=== PATIENT | female | born 1945 | race Caucasian/White ===

== ENCOUNTER 2019-03-11 16:00 | Inpatient (IN) ==
--- NOTE | 2019-03-11 19:33 | ERNOTE ---
Medical Problem HPI - General Chief Complaint: General Assessment Time Seen by Provider: 03/11/19 19:22 Source: patient Exam Limitations: no limitations - Immun/Allergies/Home Medications Immunizations: IMMUNIZATION HX Immunizations Up to Date Yes History of Influenza Vaccine No Hx Pneumococcal Vaccination Yes Allergies/Adverse Reactions: Allergies No Known Allergies Allergy (Verified 02/28/19 10:06) Home Medications: HOME MEDICATIONS Calcium Carb/Vitamin D3/Vit K1 [Calcium + D Soft Chewable Tab] 1 ea PO DAILY 05/03/13 [Last Taken 05/01/14] Oxybutynin Chloride [Ditropan Xl] 5 mg PO DAILY 10/19/17 [Last Taken Unknown] ibuprofen 200 mg capsule 600 mg PO Q8H PRN cap 12/19/17 [Last Taken Unknown] omega 4-gss-caf-fish oil 1,000 mg (120 mg-180 mg) capsule 1 cap PO DAILY cap 03/01/18 [Last Taken Unknown] estradiol 0.01% (0.1 mg/gram) vaginal cream 1 g VG 2XW #42.5 g 10/01/18 [Last Taken Unknown] multivitamin capsule 1 cap PO .QOD cap 10/02/18 [Last Taken Unknown] naproxen sodium 220 mg tablet 220 mg PO DAILY PRN tab 11/01/18 [Last Taken Unknown] losartan 100 mg tablet 100 mg PO DAILY #90 tab 11/13/18 [Last Taken Unknown] atorvastatin 10 mg tablet 10 mg PO DAILY #90 tab 12/06/18 [Last Taken Unknown] metoprolol succinate ER 100 mg tablet,extended release 24 hr 100 mg PO DAILY #90 tab 02/08/19 [Last Taken Unknown] amlodipine 5 mg tablet 5 mg PO DAILY #30 tab 03/06/19 [Last Taken Unknown] - History of Present History Narrative: Pt states she has had visual problems that she cannot fully describe since being given a blood pressure medication a few weeks ago. Her PCP changed the medication last monday but the symptoms did not resolve and have worsened today despite improved blood pressure Timing: getting worse Severity: moderate Review of Systems - Review of Systems Constitutional: Absent: recent illness, fever, chills EYE: Present: see HPI ENT: Absent: ear pain, ear discharge, sore throat Respiratory: Absent: shortness of breath Cardiology: Absent: chest pain Gastrointestinal/Abdominal: Absent: nausea, vomiting Musculoskeletal: Absent: muscle pain, muscle stiffness Neurological: Absent: dizziness/light-headedness, numbness, tingling Endocrine: Absent: excessive sweating Medical History (Updated 12/24/18 @ 16:49 by Kevyn Velásquez DO) ARNOL (stress urinary incontinence, female) (Chronic) improved with pessary OAB (overactive bladder) (Chronic) improved with oxybutynin Anogenital lichen sclerosus (Suspected) Left knee pain (Acute) Onset Date: ~09/20/18 Atypical glandular cells of undetermined significance (MARYSE) on cervical Pap smear Onset Date: 07/20/16 Difficulty hearing Onset Date: ~2000 left ear GERD (gastroesophageal reflux disease) Onset Date: Unknown Hyperlipidemia Onset Date: 09/08/15 Hypertension Onset Date: 05/07/14 benign essential Knee pain Onset Date: ~2017 right Seasonal allergies Onset Date: Unknown Uterovaginal prolapse Onset Date: 07/20/16 Cervical herniated disc Onset Date: 11/21/13 C6-C7, with left arm radiculopathy Elbow pain Onset Date: 09/12/14 left Presence of pessary Onset Date: ~08/16/16 Radial head fracture Onset Date: Unknown Shoulder pain Onset Date: 07/05/13 Sinusitis, acute Onset Date: 05/28/12 UTI (urinary tract infection) Onset Date: 12/11/12 Vaginal discharge Onset Date: 07/20/16 Surgical History: Surgical History (Updated 09/17/18 @ 13:43 by Alecia Broussard RN) H/O tubal ligation Onset Date: ~1982 History of colonoscopy Onset Date: 05/10/13 09/25/07 Kannemichaelerg-polyp (no pathology). 05/10/13 Tinguely-diverticulosis. Recheck 5 yrs. History of ear surgery Onset Date: ~2001 Henrich-left History of esophagogastroduodenoscopy (EGD) Onset Date: 06/05/08 Jd- mild gastritis History of neck surgery Onset Date: ~11/2013 Marcelo Cordova-cervical lamenectomy Family History: Family History (Updated 09/19/18 @ 14:37 by Alecia Broussard RN) Brother Diabetes H/O heart bypass surgery Brother , age 51-DE Myocardial infarction Daughter Alive and well Father , age 84-leukemia Leukemia Grandmother Diabetes maternal Cancer maternal-unsure of type Grandmother Cancer paternal-colon (unknown age of dx) Mother , age 82-heart disease Diabetes Heart disease Hypertension Sister Cancer 1 [id number] age 69 Diabetes 1 sister Uncle Heart disease Brother Diabetes Hypertension Sister , age 69-lymphoma Cancer lymphoma-dx age 50's Social History: (Last Reviewed 03/11/19 @ 19:31 by Neal Becerra DO) Social History: Marital status: household members: spouse number of children: 2 current occupational status: retired current occupation: volunteer Service: No Tobacco: Smoking Status: Never smoker Alcohol: alcohol intake: current alcohol intake frequency: a few times a month Substance Use: substance use type: does not use Dietary Habits: caffeine: Yes Type: coffee Personal Safety: victim of physical abuse: No victim of emotional abuse: No Physical Exam - Physical Exam General Appearance: Present: wd/wn, alert, no apparent distress Head Exam: Present: normal inspection, no evidence of injury Ears, Nose, Throat: Present: normal ENT inspection Neck: Present: normal inspection, nontender, supple, other - No carotid bruit Respiratory: Present: no respiratory distress, normal breath sounds, lungs clear Cardiovascular/Chest: Present: regular rate, rhythm, no murmur Peripheral Pulses: N=norm/S=strong/W=weak/B=bound/A=absent: Carotid (R): Normal, Carotid (L): Normal Back Exam: Present: normal inspection, normal range of motion, no vertebral tenderness Extremity Exam: Present: normal inspection, no edema Neurological Exam: Present: alert, oriented, normal mood/affect, no motor/sensory deficits, 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 Results and Orders: Laboratory Tests 03/11/19 03/11/19 03/11/19 19:35 19:35 20:26 WBC 12.0 H Hgb 15.3 Hct 42.3 Plt Count 294 Sodium 124 L Potassium 3.1 L D Chloride 84 L BUN 13 Creatinine 0.77 Random Glucose 111 H Calcium 9.4 Total Bilirubin 0.4 AST 34 ALT 40 Alkaline Phosphatase 90 Total Protein 7.7 Albumin 4.0 Urine Color Yellow Urine Appearance Clear Urine pH 6.0 Ur Specific [place] <=1.005 Urine Protein Negative Urine Glucose (UA) Negative Urine Ketones 5 Urine Blood 50 H Urine Nitrate Negative Urine Bilirubin Negative Urine Urobilinogen Normal Ur Leukocyte Esterase 100 H Urine RBC 5-10 H Urine WBC 5-10 H Ur Epithelial Cells 5-10 H Urine Bacteria 1+ H Urine Culture Comments Culture to follow - Vital Signs Patient's Vital Signs:: I have reviewed the patient's vital signs. Vital Signs: Vital Signs 03/11/19 16:14 03/11/19 16:19 Temperature 36.7 C Pulse Rate 61 62 Respiratory Rate 16 Blood Pressure 177/69 H 160/74 H O2 Sat by Pulse Oximetry 100 100 - EKG EKG #1 EKG: NSR - slightly bradycardic at 58 bpm EKG read: Interp. by me - CT/Ultrasound CT/Ultrasound Narrative: IMPRESSION: 1. No acute intracranial hemorrhage or mass effect. 2. Additional comments as above. Electronically signed by Nacho Bianchi M.D.. - Progress/Reassessment Chief Complaint: General Assessment Progress:: Improved Progress Note-Subjective: 03/11/19 23:[address] Mcgee he agrees with inpatient admission due to hyponatremia and pyelonephritis. Departure Clinical Impression: Hyponatremia, Pyelonephritis - Departure Disposition: Still a patient Condition: Serious Referrals: Aide Gamino MD [Primary Care Provider] -
[2019-03-11 19:41] LABS: Hematocrit 42.3 % (37.0-47.0); Hemoglobin 15.3 gm/dL (12.5-16.0); Mean Cell Volume 85.3 fl (78-100); Mean Corpuscular Hemoglobin 30.8 pg (27-31); Mean Corpuscular Hgb Conc 36.2 g/dl (32-36); Mean Platelet Volume 9.5 fl (8-12.5); Neutrophil # 7.4 K/mm3 (1.3-6.0); Neutrophil % 61.6 % (42-75.0); Platelet Count 294 K/mm3 (150-450); Red Blood Count 4.96 M/mm3 (4.2-5.4); Red Cell Distribution Width 11.9 % (11.5-14.0)
[2019-03-11 19:55] LABS: Anion Gap 13.1 mmol/L (6.8-13.8); BUN/Creatinine Ratio 16.9 (9.0-21.6); Bilirubin, Total 0.4 mg/dL (0.0-1.1); Ca. Corrected For Albumin 9.1 mg/dL (8.4-10.2); Calcium * 9.4 mg/dL (7.9-10.9); Potassium 3.1 mmol/L (3.4-4.6); Total Protein 7.7 gm/dL (6.2-8.2)
[2019-03-11 20:32] LABS: Urine Bilirubin Negative (NEGATIVE); Urine Blood 50 /ul (NEGATIVE); Urine Ketone 5 mg/dL (NEGATIVE); Urine Nitrite Negative (NEGATIVE); Urine Protein Negative (NEGATIVE); Urine Specific Gravity <=1.005 SP.GR. (1.005-1.010); Urine Urobilinogen Normal (NORMAL)
[2019-03-11 20:40] LABS: Urine Appearance Clear (CLEAR); Urine Color Yellow
[2019-03-11 20:41] LABS: Urine Bacteria 1+
[2019-03-11] MEDS ORDERED: NORMAL SALINE 1,000 ML IV ONE (23:31)
[2019-03-12] MEDS ORDERED: IBUPROFEN 600 MG TABLET PO PRN (08:26)
[2019-03-12] MEDS ORDERED: CALCIUM CARBONATE/VITAMIN D3 1 TAB TABLET PO SCH (09:00)
[2019-03-12] MEDS ORDERED: LOSARTAN POTASSIUM 50 MG TABLET PO SCH (09:00)
[2019-03-12] MEDS ORDERED: OXYBUTYNIN CHLORIDE 5 MG TABLET PO SCH ×2 (09:00)
[2019-03-12] MEDS ORDERED: METOPROLOL SUCCINATE 100 MG TABLET.SA PO SCH (09:00)
[2019-03-12] MEDS ORDERED: amLODIPine BESYLATE 5 MG TABLET PO SCH (09:00)
[2019-03-12 09:22] LABS: Albumin * 3.5 gm/dl (3.4-5.0); Anion Gap 13.4 mmol/L (6.8-13.8); BUN/Creatinine Ratio 13.3 (9.0-21.6); Bilirubin, Total 0.4 mg/dL (0.0-1.1); Ca. Corrected For Albumin 9.2 mg/dL (8.4-10.2); Calcium * 9.1 mg/dL (7.9-10.9); Carbon Dioxide 27.6 mmol/L (24-32.6)
[2019-03-12] MEDS ORDERED: NORMAL SALINE 1,000 ML IV PRN (10:23)
--- NOTE | 2019-03-12 11:44 | HPDIS ---
Chief Complaint - Chief Complaint Date of Service: 03/12/19 Time of Service: 08:30 Chief Complaint: Confusion, weakness History of Present Illness: Megha is a 73 yo female with hypertension that presented to the [facility] ER for concerns of weakness, confusion, and dizziness. She has had recent medication changes due to elevated blood pressure. She reports being on losartan and metoprolol for years for blood pressure. Her blood pressure was recently elevated and she was started on Chlorthalidone for about a week before she started getting lightheaded and she called Dr. Gamino who stopped the Chlorthalidone and placed her on amlodipine 5mg daily last week. She reports trying to stay well hydrated as she thought the diuretic was making her dehydrated, as she was frequently going to the restroom. Symptoms did not improve after changing to amlodipine and significantly worsened causing her to go to the ER. In the ER her blood pressure initially in the ER was 177/69. She had bloodwork that showed WBC of 12k and UA suspicious for UTI with urine culture pending. Her sodium was 124 and her prior baseline was 140 earlier this year. Medical History (Updated 03/12/19 @ 11:44 by Mahendra Mcgee DO) ARNOL (stress urinary incontinence, female) (Chronic) improved with pessary OAB (overactive bladder) (Chronic) improved with oxybutynin Anogenital lichen sclerosus (Suspected) Left knee pain (Acute) Onset Date: ~09/20/18 Atypical glandular cells of undetermined significance (MARYSE) on cervical Pap smear Onset Date: 07/20/16 Difficulty hearing Onset Date: ~2000 left ear GERD (gastroesophageal reflux disease) Onset Date: Unknown Hyperlipidemia Onset Date: 09/08/15 Hypertension Onset Date: 05/07/14 benign essential Knee pain Onset Date: ~2017 right Seasonal allergies Onset Date: Unknown Uterovaginal prolapse Onset Date: 07/20/16 Cervical herniated disc Onset Date: 11/21/13 C6-C7, with left arm radiculopathy Elbow pain Onset Date: 09/12/14 left Presence of pessary Onset Date: ~08/16/16 Radial head fracture Onset Date: Unknown Shoulder pain Onset Date: 07/05/13 Sinusitis, acute Onset Date: 05/28/12 UTI (urinary tract infection) Onset Date: 12/11/12 Vaginal discharge Onset Date: 07/20/16 Surgical History: Surgical History (Updated 03/12/19 @ 11:44 by Mahendra Mcgee DO) H/O tubal ligation Onset Date: ~1982 History of colonoscopy Onset Date: 05/10/13 09/25/07 Kannenberg-polyp (no pathology). 05/10/13 Tinguely-diverticulosis. Recheck 5 yrs. History of ear surgery Onset Date: ~2001 Henrich-left History of esophagogastroduodenoscopy (EGD) Onset Date: 06/05/08 Jd- mild gastritis History of neck surgery Onset Date: ~11/2013 Marcelo Cordova-cervical lamenectomy Family History: Family History (Updated 09/19/18 @ 14:37 by Alecia Broussard RN) Brother Diabetes H/O heart bypass surgery Brother , age 51-DE Myocardial infarction Daughter Alive and well Father , age 84-leukemia Leukemia Grandmother Diabetes maternal Cancer maternal-unsure of type Grandmother Cancer paternal-colon (unknown age of dx) Mother , age 82-heart disease Diabetes Heart disease Hypertension Sister Cancer 1 [id number] age 69 Diabetes 1 sister Uncle Heart disease Brother Diabetes Hypertension Sister , age 69-lymphoma Cancer lymphoma-dx age 50's Social History: (Last Reviewed 03/12/19 @ 00:35 by Zaid Sarah RN) Social History: Marital status: household members: spouse number of children: 2 current occupational status: retired current occupation: volunteer Service: No Tobacco: Smoking Status: Never smoker Alcohol: alcohol intake: current alcohol intake frequency: a few times a month Substance Use: substance use type: does not use Dietary Habits: caffeine: Yes Type: coffee Personal Safety: victim of physical abuse: No victim of emotional abuse: No Review Of Systems (GEN) - Review of Systems Generalized/Overall Review: Present: Weakness. Absent: Chills, Fever EENTM: Present: No Symptoms Reported Respiratory: Absent: Cough, Shortness of Breath Cardiac: Absent: Chest Pain, Edema, Palpitations, Syncope Abdominal: Absent: Nausea, Vomiting Genitourinary: Absent: Urgency, Frequency, Dribbling, Incontinent, Dysuria Musculoskeletal: Present: No Symptoms Reported Neurological: Present: No Symptoms Reported Skin: Present: No Symptoms Reported Endocrine: Present: No Symptoms Reported Immunizations: IMMUNIZATION HX Immunizations Up to Date Yes History of Influenza Vaccine No Hx Pneumococcal Vaccination Yes Allergies/Adverse Reactions: Allergies Allergy/AdvReac Type Severity Reaction Status Date / Time No Known Allergies Allergy Verified 03/12/19 00:35 Home Medications: HOME MEDICATIONS Calcium Carb/Vitamin D3/Vit K1 [Calcium + D Soft Chewable Tab] 1 ea PO DAILY 05/03/13 [Last Taken 05/01/14] Oxybutynin Chloride [Ditropan Xl] 5 mg PO DAILY 10/19/17 [Last Taken Unknown] ibuprofen 200 mg capsule 600 mg PO Q8H PRN cap 12/19/17 [Last Taken Unknown] omega 1-xqj-lfg-fish oil 1,000 mg (120 mg-180 mg) capsule 1 cap PO DAILY cap 03/01/18 [Last Taken Unknown] estradiol 0.01% (0.1 mg/gram) vaginal cream 1 g VG 2XW #42.5 g 10/01/18 [Last Taken Unknown] multivitamin capsule 1 cap PO .QOD cap 10/02/18 [Last Taken Unknown] naproxen sodium 220 mg tablet 220 mg PO DAILY PRN tab 11/01/18 [Last Taken Unknown] losartan 100 mg tablet 100 mg PO DAILY #90 tab 11/13/18 [Last Taken Unknown] atorvastatin 10 mg tablet 10 mg PO DAILY #90 tab 12/06/18 [Last Taken Unknown] metoprolol succinate ER 100 mg tablet,extended release 24 hr 100 mg PO DAILY #90 tab 02/08/19 [Last Taken Unknown] amlodipine 5 mg tablet 5 mg PO DAILY #30 tab 03/06/19 [Last Taken Unknown] Exam - Exam Vital Signs: Vital Signs - Last Taken Temp 36.3 C 03/12/19 10:00 Pulse 71 03/12/19 10:00 Resp 18 03/12/19 10:00 BP 152/75 H 03/12/19 10:00 Pulse Ox 98 03/12/19 10:00 Constitutional: Present: Alert, Oriented x3, Cooperative ENT Exam: Present: hearing grossly normal Eye Exam: bilateral eye: normal inspection Respiratory: Present: lungs clear, normal breath sounds Cardiovascular/Chest: Present: regular rate, rhythm, no murmur Abdomen: Present: Normal bowel sounds, soft, nontender, nondistended Skin Exam: Present: normal color, warm/dry, no cyanosis Eye contact: Present: cooperative, good eye contact, normal speech Thoughts: Present: normal thought pattern, no apparent hallucination Diagnostic Studies: Abnormal Lab Results 03/11/19 03/11/19 03/11/19 Range/Units 19:35 19:35 20:26 WBC 12.0 H (4.0-10.5) K/mm3 MCHC 36.2 H (32-36) g/dl Immature Gran % (Auto) 0.50 H (0.001-0.429) % Immature Gran # (Auto) 0.06 H (0.000-0.0310) K/mm3 Neutrophils # 7.4 H (1.3-6.0) K/mm3 Sodium 124 L (132-142) mmol/L Plasma Sodium 124 L (130-142) mmol/L Potassium 3.1 L D (3.4-4.6) mmol/L Chloride 84 L (97-106) mmol/L Random Glucose 111 H (70-110) mg/dL Urine Blood 50 H (NEGATIVE) /ul Ur Leukocyte Esterase 100 H (NEGATIVE) /ul Urine RBC 5-10 H (0-5) /hpf Urine WBC 5-10 H (0-5) /hpf Ur Epithelial Cells 5-10 H (0-5) /hpf Urine Bacteria 1+ H (NONE) 03/12/19 Range/Units 09:00 WBC (4.0-10.5) K/mm3 MCHC (32-36) g/dl Immature Gran % (Auto) (0.001-0.429) % Immature Gran # (Auto) (0.000-0.0310) K/mm3 Neutrophils # (1.3-6.0) K/mm3 Sodium 130 L (132-142) mmol/L Plasma Sodium (130-142) mmol/L Potassium 3.0 L (3.4-4.6) mmol/L Chloride 92 L (97-106) mmol/L Random Glucose 168 H D (70-110) mg/dL Urine Blood (NEGATIVE) /ul Ur Leukocyte Esterase (NEGATIVE) /ul Urine RBC (0-5) /hpf Urine WBC (0-5) /hpf Ur Epithelial Cells (0-5) /hpf Urine Bacteria (NONE) Microbiology 03/11/19 20:26 Urine Culture - Preliminary Urine,Voided No Growth Laboratory Results WBC 12.0 K/mm3 (4.0-10.5) H 03/11/19 19:35 RBC 4.96 M/mm3 (4.2-5.4) 03/11/19 19:35 Hgb 15.3 gm/dL (12.5-16.0) 03/11/19 19:35 Hct 42.3 % (37.0-47.0) 03/11/19 19:35 MCV 85.3 fl (78-100) 03/11/19 19:35 MCH 30.8 pg (27-31) 03/11/19 19:35 MCHC 36.2 g/dl (32-36) H 03/11/19 19:35 RDW 11.9 % (11.5-14.0) 03/11/19 19:35 Plt Count 294 K/mm3 (150-450) 03/11/19 19:35 MPV 9.5 fl (8-12.5) 03/11/19 19:35 Immature Gran % (Auto) 0.50 % (0.001-0.429) H 03/11/19 19:35 Immature Gran # (Auto) 0.06 K/mm3 (0.000-0.0310) H 03/11/19 19:35 61.6 % (42-75.0) 03/11/19 19:35 27.0 % (20-51) 03/11/19 19:35 7.9 % (0.0-9) 03/11/19 19:35 2.4 % (0.0-3.0) 03/11/19 19:35 0.6 % (0.0-1.0) 03/11/19 19:35 Nucleated RBC % 0.0 k/mm3 (0-1) 03/11/19 19:35 7.4 K/mm3 (1.3-6.0) H 03/11/19 19:35 3.24 k/mm3 (1.5-3.5) 03/11/19 19:35 1.0 k/mm3 (0.0-1.0) 03/11/19 19:35 0.3 k/mm3 (0.0-0.7) 03/11/19 19:35 Absolute Basophils 0.1 k/mm3 (0.0-0.1) 03/11/19 19:35 Sodium 130 mmol/L (132-142) L 03/12/19 09:00 131 mmol/L (130-142) 03/12/19 09:00 Potassium 3.0 mmol/L (3.4-4.6) L 03/12/19 09:00 Chloride 92 mmol/L (97-106) L 03/12/19 09:00 Carbon Dioxide 27.6 mmol/L (24-32.6) 03/12/19 09:00 13.4 mmol/L (6.8-13.8) 03/12/19 09:00 BUN 12 mg/dL (3-23) 03/12/19 09:00 0.90 mg/dL (0.4-1.4) 03/12/19 09:00 Est GFR (Non-Af Amer) 65 mL/min (60-130) 03/12/19 09:00 13.3 (9.0-21.6) 03/12/19 09:00 168 mg/dL (70-110) H D 03/12/19 09:00 Calcium 9.1 mg/dL (7.9-10.9) 03/12/19 09:00 Calcium Adj for Albumin 9.2 mg/dL (8.4-10.2) 03/12/19 09:00 0.4 mg/dL (0.0-1.1) 03/12/19 09:00 AST 26 U/L (0-48) 03/12/19 09:00 ALT 34 U/L (19-67) 03/12/19 09:00 81 U/L (50-170) 03/12/19 09:00 7.0 gm/dL (6.2-8.2) 03/12/19 09:00 3.5 gm/dl (3.4-5.0) 03/12/19 09:00 Yellow 03/11/19 20:26 Clear (CLEAR) 03/11/19 20:26 6.0 pH (5.0-7.0) 03/11/19 20:26 Ur Specific [place] <=1.005 SP.GR. (1.005-1.010) 03/11/19 20:26 Negative mg/dL (NEGATIVE) 03/11/19 20:26 Negative mg/dL (NEGATIVE) 03/11/19 20:26 5 mg/dL (NEGATIVE) 03/11/19 20:26 50 /ul (NEGATIVE) H 03/11/19 20:26 Negative (NEGATIVE) 03/11/19 20:26 Negative mg/dl (NEGATIVE) 03/11/19 20:26 Normal EU/dl (NORMAL) 03/11/19 20:26 Ur Leukocyte Esterase 100 /ul (NEGATIVE) H 03/11/19 20:26 5-10 /hpf (0-5) H 03/11/19 20:26 5-10 /hpf (0-5) H 03/11/19 20:26 Ur Epithelial Cells 5-10 /hpf (0-5) H 03/11/19 20:26 1+ (NONE) H 03/11/19 20:26 Culture to follow 03/11/19 20:26 Assessment/Plan - Assessment/Plan (1) Hyponatremia Assessment: Megha is a 73 yo female with hyponatremia of 124. I suspect this is secondary to chlorthalidone that was discontinued last week. Treated with IV normal saline in the ER, will check sodium and give fluids based on this result. Due to Sodium of 124 with weakness, dizziness, and confusion this is significant and requires inpatient admission for IV fluids and monitoring of sodium to correct. Expect >2 midnights to correct sodium. Problem: Acute (2) Hypokalemia Assessment: Will recheck potassium after fluids. Problem: Acute (3) Hypertension Assessment: Blood pressure was elevated in the ER. It is now normal. Will continue current medications of losartan, metoprolol, and amlodipine. Problem: Acute Qualifiers: Hypertension type: essential hypertension Qualified Code(s): I10 - Essential (primary) hypertension (1) Hyponatremia Problem: Acute (2) Hypokalemia Problem: Acute (3) Hypertension Problem: Acute Qualifiers: Hypertension type: essential hypertension Qualified Code(s): I10 - Essential (primary) hypertension Date of Discharge:: 03/12/19 Description of Stay: Megha is a 73 yo female that was admitted to inpatient for symptomatic hyponatremia with weakness, confusion, dizziness, and a sodium of 124. This was treated with normal Saline, on repeat sodium was improved to 130 which corrected faster than expected. Her baseline is near 140 so she was given an additional liter of normal saline and this was rechecked. Sodium improved to 132. She is feeling well, her blood pressure has been normal to slightly elevated, but within range to discharge to home. She will be discharged on her current medications as I believe the chlorthalidone was the cause and this was discontinued last week. Procedures Performed: none Results and Findings: Pending Mircobiology Results 03/11/19 20:26 Urine,Voided Urine Culture - Preliminary No Growth Lab Pending Results 03/11/19 19:35: WBC 12.0 H, RBC 4.96, Hgb 15.3, Hct 42.3, MCV 85.3, MCH 30.8, MCHC 36.2 H, RDW 11.9, Plt Count 294, MPV 9.5, Immature Gran % (Auto) 0.50 H, Immature Gran # (Auto) 0.06 H, Neutrophils % 61.6, Lymphocytes % 27.0, Monocytes % 7.9, Eosinophils % 2.4, Basophils % 0.6, Nucleated RBC % 0.0, Neutrophils # 7.4 H, Lymphocytes # 3.24, Monocytes # 1.0, Eosinophils # 0.3, Absolute Basophils 0.1 03/11/19 19:35: Sodium 124 L, Plasma Sodium 124 L, Potassium 3.1 L D, Chloride 84 L, Carbon Dioxide 30.0, Anion Gap 13.1, BUN 13, Creatinine 0.77, Est GFR (Non-Af Amer) 78 D, BUN/Creatinine Ratio 16.9, Random Glucose 111 H, Calcium 9.4, Calcium Adj for Albumin 9.1, Total Bilirubin 0.4, AST 34, ALT 40, Alkaline Phosphatase 90, Total Protein 7.7, Albumin 4.0 03/11/19 20:26: Urine Color Yellow, Urine Appearance Clear, Urine pH 6.0, Ur Specific [place] <=1.005, Urine Protein Negative, Urine Glucose (UA) Negative, Urine Ketones 5, Urine Blood 50 H, Urine Nitrate Negative, Urine Bilirubin Negative, Urine Urobilinogen Normal, Ur Leukocyte Esterase 100 H, Urine RBC 5-10 H, Urine WBC 5-10 H, Ur Epithelial Cells 5-10 H, Urine Bacteria 1+ H, Urine Culture Comments Culture to follow 03/12/19 09:00: Sodium 130 L, Plasma Sodium 131, Potassium 3.0 L, Chloride 92 L, Carbon Dioxide 27.6, Anion Gap 13.4, BUN 12, Creatinine 0.90, Est GFR (Non-Af Amer) 65, BUN/Creatinine Ratio 13.3, Random Glucose 168 H D, Calcium 9.1, Calcium Adj for Albumin 9.2, Total Bilirubin 0.4, AST 26, ALT 34, Alkaline Phosphatase 81, Total Protein 7.0, Albumin 3.5 Discharge Location: Home Disposition: Home self-care Condition: Good Discharge Activity: Activity as tolerated Discharge Diet: General/regular food Referrals: Aide Gamino MD [Primary Care Provider] - One Week Problem Oriented Discharge Instructions to Patient/Family: Hyponatremia Additional Patient Instructions (free text): -Please make TCM appointment unless custodial discharge, or if following up with outside provider. Thank you! Moni @ [facility] [phone] or Melody at [phone]. Complete Home Medications List: Complete Home Medication List: Calcium Carb/Vitamin D3/Vit K1 [Calcium + D Soft Chewable Tab] 1 ea PO DAILY 05/03/13 Oxybutynin Chloride [Ditropan Xl] 5 mg PO DAILY 10/19/17 ibuprofen 200 mg capsule 600 mg PO Q8H PRN cap 12/19/17 omega 0-utn-apr-fish oil 1,000 mg (120 mg-180 mg) capsule 1 cap PO DAILY cap 03/01/18 estradiol 0.01% (0.1 mg/gram) vaginal cream 1 g VG 2XW #42.5 g 10/01/18 multivitamin capsule 1 cap PO .QOD cap 10/02/18 naproxen sodium 220 mg tablet 220 mg PO DAILY PRN tab 11/01/18 losartan 100 mg tablet 100 mg PO DAILY #90 tab 11/13/18 atorvastatin 10 mg tablet 10 mg PO DAILY #90 tab 12/06/18 metoprolol succinate ER 100 mg tablet,extended release 24 hr 100 mg PO DAILY #90 tab 02/08/19 amlodipine 5 mg tablet 5 mg PO DAILY #30 tab 03/06/19
[2019-03-12 14:15] LABS: Albumin * 3.2 gm/dl (3.4-5.0); Anion Gap 12.5 mmol/L (6.8-13.8); BUN/Creatinine Ratio 16.9 (9.0-21.6); Bilirubin, Total 0.3 mg/dL (0.0-1.1); Ca. Corrected For Albumin 9.1 mg/dL (8.4-10.2); Calcium * 8.8 mg/dL (7.9-10.9); Carbon Dioxide 27.8 mmol/L (24-32.6); Potassium 3.3 mmol/L (3.4-4.6); Total Protein 6.6 gm/dL (6.2-8.2)
[2019-03-12 14:26] LABS: Hematocrit 38.8 % (37.0-47.0); Hemoglobin 13.7 gm/dL (12.5-16.0); Mean Cell Volume 87.6 fl (78-100); Mean Corpuscular Hemoglobin 30.9 pg (27-31); Mean Corpuscular Hgb Conc 35.3 g/dl (32-36); Mean Platelet Volume 9.9 fl (8-12.5); Neutrophil % 60.7 % (42-75.0); Platelet Count 301 K/mm3 (150-450); Red Blood Count 4.43 M/mm3 (4.2-5.4); Red Cell Distribution Width 12.1 % (11.5-14.0); White Blood Count 8.2 K/mm3 (4.0-10.5)
[2019-03-12 18:20] VITALS: BP 127/54
[2019-03-12] MEDS ORDERED: ROSUVASTATIN CALCIUM 10 MG TABLET PO SCH (21:00)
== END 2019-03-12 16:45 | disposition home or self-care (01) | DRG 641 ==
LOC: ER 16:00 → MS 23:35
PROVIDERS: ADMIT Family Medicine; ATTEND Family Medicine
CPT/HCPCS: 36415; 70450; 80053; 81001; 85025; 87086; 93005; 94762; 99285